=== PATIENT | male | born 1940 | race Caucasian/White ===

== ENCOUNTER 2021-02-26 15:19 | Outpatient (CLI) | payer MEDICARE, BC | END 2021-02-26 15:20 | disposition home or self-care (01) | LOC: CSHCT 15:19 | PROVIDERS: ATTEND Otolaryngology Plastic Surgery within the Head & Neck | DX: D36.10 Benign neoplasm of peripheral nerves and autonomic nervous system, unspecified (principal); R22.1 Localized swelling, mass and lump, neck | CPT/HCPCS: 70491 ==

== ENCOUNTER 2021-03-05 10:38 | Outpatient (CLI) | payer MEDICARE, BC ==
[2021-03-05 21:55] LABS: SARS-CoV-2 PCR by NAA Not Detected (NotDetected)
== END 2021-03-05 10:39 | disposition home or self-care (01) ==
LOC: CSHLAB 10:38
PROVIDERS: ATTEND Otolaryngology Plastic Surgery within the Head & Neck
DX: Z01.818 Encounter for other preprocedural examination (principal); Z20.822 Contact with and (suspected) exposure to COVID-19; H61.23 Impacted cerumen, bilateral; R22.1 Localized swelling, mass and lump, neck
CPT/HCPCS: 87635; 93005; 93010; U0003; U0005

== ENCOUNTER 2021-05-30 11:27 | Emergency (ER) | payer MEDICARE, BC ==
[2021-05-30] MEDS ORDERED: Morphine 2 MG/ML VIAL ONE ×2 (13:05→17:56)
[2021-05-30 13:06] LABS: ALT (SGPT) 27 U/L (8-55); AST (SGOT) 26 U/L (5-34); Alkaline Phosphatase 76 U/L (40-110); Anion Gap 13 mmol/L (10-20); BUN (Urea Nitrogen) 14 mg/dL (8.4-25.7); Bilirubin, Total 0.7 mg/dL (0.2-1.2); Calc. Creatinine Clearance 0 mL/min (70-130); Calcium 9.5 mg/dL (7.8-10.44); Carbon Dioxide 24 mmol/L (23-31); Chloride 106 mmol/L (98-107); Globulin 3.6 g/dL (2.4-3.5); Glucose 94 mg/dL (83-110); Potassium 3.9 mmol/L (3.5-5.1); Protein, Total 7.6 g/dL (5.8-8.1); Sodium 139 mmol/L (136-145)
[2021-05-30 13:11] LABS: Bilirubin 1+ (Negative); Blood, Urine 10 (Negative); Clarity Cloudy (Clear); Glucose, Urine (Dipstick) Normal (Negative); Ketone, Urine Negative (Negative); Leukocyte 25 (Negative); Nitrite Negative (Negative); Protein, Urine (Dipstick) 30 mg/dl (Neg-Trace)
[2021-05-30 13:18] LABS: Hemoglobin 14.2 g/dL (13.5-17.5); Mean Corpuscular HGB CONC 31.3 g/dL (32.0-36.0); Mean Corpuscular Volume 95.6 fl (81.2-95.1); Mean Platelet Volume 10.7 fl (7.4-10.4); Platelet Count 152 10x3/uL (150-450); RBC Distribution Width 13.2 % (11.5-14.5); Red Blood Cell (RBC) Count 4.74 10x6/uL (4.32-5.72); White Blood Cell (WBC) Count 8.9 10x3/uL (3.5-10.5)
[2021-05-30 13:30] LABS: RBC/HPF 0-3 HPF (0-3); WBC/HPF 0-3 HPF (0-3)
[2021-05-30 13:31] LABS: Bacteria/HPF Rare-Few HPF (None Seen); Mucous/LPF 3+ LPF (<2+); Renal Epithelial 0-3 HPF (None Seen); Squamous Epithelial 0-3 HPF (0-3)
[2021-05-30 14:18] LABS: Band 2 % (5-11); Eosinophils 3 % (0-10); Lymphocytes 17 % (21-51); MDiff Complete? YES; Monocytes 19 % (0-10); Neutrophil 57 % (42-75); Reactive Lymphocytes 1 % (0-10)
[2021-05-30 14:19] LABS: Platelet Morphology Comment Appears Adequate; RBC Morphology Normal
[2021-05-30] MEDS ORDERED: Ondansetron PF 4 MG/2 ML Vial ONE ×2 (14:19→14:20)
[2021-05-30] MEDS ORDERED: Diphenoxylate HCl/Atropine Tablet PO PRN (17:33)
== END 2021-05-30 18:19 | disposition home or self-care (01) ==
LOC: CSHERS 11:27
DX: K52.9 Noninfective gastroenteritis and colitis, unspecified (principal); I10 Essential (primary) hypertension; Z79.899 Other long term (current) drug therapy
CPT/HCPCS: 74177; 80053; 82274; 83735; 85025; 87045; 87046; 87324; 87427 ×2; 87449 ×2; J2270; 81003; 81015; 96374; 96375; 96376; J2405